=== PATIENT | female | born 1950 | race Caucasian/White ===

== ENCOUNTER 2024-10-13 09:39 | Emergency (ER) | payer OTHER ==
[~2024-10-13] VITALS: Ht 165.1 cm; Wt 100.0 kg
[2024-10-13 10:34] VITALS: BP 142/90; PULSE 74; RESP 16; TEMP 98.6; O2SAT 100
--- NOTE | 2024-10-13 10:47 | DVH ---
XY L HUMERUS XRAY, INDICATION: LEFT SHOULDER PAIN TECHNICAL DATA: Frontal and lateral views were obtained of the left humerus. COMPARISON: None FINDINGS: Displaced mid shaft left humerus fracture. Soft tissues are normal. IMPRESSION: Displaced mid shaft left humerus fracture.
[2024-10-13] MEDS: HYDROcodone-ACET 10/325MG TAB PO ONE (11:15)
[2024-10-13] MEDS ORDERED: IBUP1TAB5 PO (11:19)
--- NOTE | 2024-10-13 11:20 | ED.PDOC ---
Musculoskeletal HPI Comments This is a 73-year-old female who comes in with left shoulder pain. Apparently she tripped over a piece of wood slap this morning and landed directly on her shoulder. There was no loss of consciousness no other injury just pain in her arm and shoulder. Denies any numbness or tingling. 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 History Family History Family History: Unknown Social History Smoker: Non-Smoker Lives In: Home Musculoskeletal: reports: others (left shoulder pain) Physical Exam General Appearance: No Apparent Distress HEENT: Normal ENT Inspection, PERRL/EOMI, Pharynx Normal, TMs Normal Neck: Full Range of Motion, Non-Tender, Normal Inspection Respiratory: Lungs Clear, No Respiratory Distress, Normal Breath Sounds Cardiovascular: Regular Rate/Rhythm Breast Exam: Deferred Gastrointestinal: Non Tender, Normal Bowel Sounds Genitalia: Deferred Pelvic: Deferred Rectal: Deferred Extremities: Decreased range of motion, Normal capillary refill (Tenderness over the left shoulder with inability to move the arm also tenderness in the left humerus), Swelling, Tender Neurologic: Alert, Motor Weakness, Normal Affect, Normal Mood Cerebellar Function: Unable to Test Reflexes: NOT DONE Skin: Dry, Warm Lymphatic: No Adenopathy Was a procedure done? Was a procedure done?: No Differential Diagnosis EXT Differential Diagnosis: Sprain, Dislocation X-Ray, Labs, Meds, VS Vital Signs Date Time Temp Pulse Resp B/P (MAP) Pulse Ox O2 Delivery O2 Flow Rate FiO2 10/13/24 10:34 74 16 100 Room Air 10/13/24 10:34 98.6 74 16 142/90 (107) 100 98.6 10/13/24 09:53 98.6 74 16 142/90 (107) 100 X-Ray, Labs, Meds, VS Comment Patient seen and examined by me. X-ray was done in triage which does show a left humerus fracture. Patient will be given a [place] here for pain management and placed in the sling. Told the family she will need follow-up with her primary care for an orthopedic referral. Patient will be sent home with some strong Motrin.. Good cap refill noted prior and after sling placement. ORDERING PHYSICIAN: ELADIO PHIPPS MD PROCEDURE(s): LHUM - L HUMERUS XRAY REASON: LEFT SHOULDER PAIN ORDER NUMBER(s): [id number], ACCESSION NUMBER(s): [id number] XY L HUMERUS XRAY, INDICATION: LEFT SHOULDER PAIN TECHNICAL DATA: Frontal and lateral views were obtained of the left humerus. COMPARISON: None FINDINGS: Displaced mid shaft left humerus fracture. Soft tissues are normal. IMPRESSION: Displaced mid shaft left humerus fracture. ATED BY: JOO TOMAS MD DICTATED DATE/TIME: 10/13/24 1045 Time of 1ST Reevaluation: 11:18 Reevaluation 1ST: Improved Patient Education/Counseling: Diagnosis, Treatment, Prognosis, Need For Follow Up Family Education/Counseling: Treatment, Prognosis, Need For Follow Up Departure 1 Departure Time of Disposition: 11:18 Impression: Primary Impression: Left humeral fracture Disposition: 01 HOME / SELF CARE / HOMELESS Condition: Good Additional Instructions: Please keep take a copy of your x-ray with you when you see your primary care doctor and your orthopedic doctor Take the Motrin as needed for pain with food every 6 hours Keep your arm in the sling at all times e-Prescriptions Ibuprofen Micronized (Ibuprofen) 600 Mg Tab 600 MG PO Q6HPRN PRN for 5 Days, #20 TAB Prov: RYLEE FAJARDO 10/13/24 Discharged With: Self, Relative (Sibling) Critical Care Note Critical Care Time?: No Stability Stability form required: No RYLEE FAJARDO Oct 13, 2024 11:20
[2024-10-13] MEDS: IBUPROFEN 800 MG TAB PO ONE (11:46)
[2024-10-13] MEDS: ONDANSETRON ODT 4 MG TAB PO ONE (11:46)
== END 2024-10-13 11:20 | disposition home or self-care (01) ==
LOC: ER 09:39
DX: S42.392A Other fracture of shaft of left humerus, initial encounter for closed fracture (principal); I10 Essential (primary) hypertension; Z98.890 Other specified postprocedural states; Z88.0 Allergy status to penicillin; W01.0XXA Fall on same level from slipping, tripping and stumbling without subsequent striking against object, initial encounter; Y93.89 Activity, other specified; Y92.89 Other specified places as the place of occurrence of the external cause; Y99.8 Other external cause status
CPT/HCPCS: 73060; 99283; Q0162

== ENCOUNTER 2025-05-29 09:30 | Emergency (ER) | payer OTHER ==
[~2025-05-29] VITALS: Ht 165.1 cm; Wt 97.1 kg
[~2025-05-29 09:30] MED LIST: IBUP1TAB5 PO
--- NOTE | 2025-05-29 10:27 | ED.PDOC ---
Musculoskeletal HPI Comments THIS IS A 74 YEAR OLD MALE PRESENTING TO THE ED WITH CHIEF COMPLAINT OF LEFT LEG SWELLING. PATIENT REPORTS THAT SHE HAS BEEN EXPERIENCING LEFT LEG SWELLING AND PAIN FOR THE PAST 2 DAYS, WORSENING OVER TIME. PT IS ABLE TO WALK AND STAND WITH NORMAL ROM. PATIENT DENIES ANY FALL, INJURY, CHEST PAIN, SOB, NUMBNESS, WEAKNES S, OR TINGLING.NO OTHER SYMPTOMS REPORTED AT THIS TIME OF CARE. Time Seen by MD: 10:25 Primary Care Provider: DENIES Reviewed Notes: Nurses Notes, Medications, Allergies Allergies: Coded Allergies: Penicillins (Verified Allergy, Severe, 02/15/14) Home Meds Active Scripts Ibuprofen Micronized (Ibuprofen) 600 Mg Tab, 600 MG PO Q6HPRN PRN for 5 Days, #20 TAB Prov:RYLEE FAJARDO Leni BLACKWOOD 10/13/24 Information Source: Patient Mode of Arrival: Ambulatory Location: Left Extremity Location: Leg Timing: Days Prehospital treatment: None Severity: Mild Able to Move Extremity: Yes Bear Weight: Fully Pain: Mild Hand Dominance: Right Mechanism: Spontaneous Circumstances: Spontaneous Onset of Symptoms: Spontaneous Symptoms: Swelling, Pain DVT Risk Factors: NONE Associated signs and symptoms: Leg pain Past Medical History PAST MEDICAL HISTORY: HTN Surgical History: Hernia Repair 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 Family History Family History: Reviewed,noncontributory to illness Social History Smoker: Non-Smoker Alcohol: Denies ETOH Use Drugs: Denies Drug Use Lives In: Home Constitutional: denies: chills, diaphoresis, fatigue, fever, malaise, sweats, weakness, others EENTM: denies: blurred vision, double vision, ear bleeding, ear discharge, ear drainage, ear pain, ear ringing, eye pain, eye redness, hearing loss, mouth pain, mouth swelling, nasal discharge, nose bleeding, nose congestion, nose pain, photophobia, tearing, throat pain, throat swelling, voice changes, others Respiratory: denies: cough, hemoptysis, orthopnea, SOB at rest, shortness of breath, SOB with excertion, stridor, wheezing, others Cardiovascular: denies: chest pain, dizzy spells, diaphoresis, Dyspnea on exertion, edema, irregular heart beat, left arm pain, lightheadedness, palpitations, PND, syncope, others Gastrointestinal: denies: abdomen distended, abdominal pain, blood streaked bowels, constipated, diarrhea, dysphagia, difficulty swallowing, hematemesis, melena, nausea, poor appetite, poor fluid intake, rectal bleeding, rectal pain, vomiting, others Genitourinary: denies: abnormal vagina bleeding, burning, dyspareunia, dysuria, flank pain, frequency, hematuria, incontinence, pain, , vagina discharge, urgency, others Neurological: denies: dizziness, fainting, headache, left sided numbness, left sided weakness, numbness, paresthesia, pre-existing deficit, right sided numbness, right sided weakness, seizure, speech problems, tingling, tremors, weakness, others Musculoskeletal: reports: muscle pain, others (LEFT LEG SWELLING AND PAIN); denies: back pain, gout, joint pain, joint swelling, muscle stiffness, neck pain Integumetry: denies: bruises, change in color, change in hair/nails, dryness, laceration, lesions, lumps, rash, wounds, others Allergic/Immunocompromised: denies: Difficulty Healing, Frequent Infections, Hives, Itching, others Hematologic/Lymphatic: denies: anemia, blood clots, easy bleeding, easy bruising, swollen glands, others Endocrine: denies: excessive hunger, excessive sweating, excessive thirst, excessive urination, flushing, intolerance to cold, intolerance to heat, unexp lained weight gain, unexplained weight loss, others Psychiatric: denies: anxiety, bipolar disorder, depression, hopeless, panic disorder, schizophrenia, sleepless, suicidal, others All Other Systems: Reviewed and Negative Physical Exam General Appearance: No Apparent Distress, Obese HEENT: Normal ENT Inspection, PERRL/EOMI, Pharynx Normal, TMs Normal Neck: Full Range of Motion, Non-Tender, Normal, Normal Inspection Respiratory: Chest Non-Tender, Lungs Clear, No Accessory Muscle Use, No Respi ratory Distress, Normal Breath Sounds Cardiovascular: No Edema, No JVD, No Murmur, No Gallop, Normal Peripheral Pulses, Regular Rate/Rhythm Breast Exam: Deferred Gastrointestinal: No Organomegaly, Non Tender, No Pulsatile Mass, Normal Bowel Sounds, Soft Genitalia: Deferred Pelvic: Deferred Rectal: Deferred Extremities: No calf tenderness, Normal capillary refill, Normal range of motion, No pedal edema, Swelling (TENDERNESS AND MILD SWELLING ON LEFT LOWER LEG, NO REDNESS AND DVT SIGNS. ), Tender (MILD TENDERNESS AND SWELLING ON LEFT LOWER LEG, NO REDNESS AND OPEN WOUND. ) Musculoskeletal : Apperance: Normal Neurologic: Alert, formstone fitter II-XII nml as Tested, No Motor Deficits, Normal Affect, Normal Mood, No Sensory Deficits Cerebellar Function: Normal Reflexes: Normal Skin: Dry, Normal Color, Warm Peripheral Pulses: 2+ carotid (R), 2+ carotid (L), 2+ dorsalis pedis (R), 2+ dorsalis pedis (L) Lymphatic: No Adenopathy Was a procedure done? Was a procedure done?: No Differential Diagnosis EXT Differential Diagnosis: Cellulitis, Deep Vein Thrombosis, Strain X-Ray, Labs, Meds, VS Vital Signs Date Time Temp Pulse Resp B/P (MAP) Pulse Ox O2 Delivery O2 Flow Rate FiO2 05/29/25 10:30 98.2 71 17 150/76 (100) 95 98.2 X-Ray, Labs, Meds, VS Comment EXTERNAL MEDICAL RECORDS REVIEWED: [NONE] INDEPENDENT HISTORIANS: [NONE] SOCIAL DETERMINANTS OF HEALTH: [NONE] LABS ORDERED: NONE REVIEWED AND INTERPRETED RESULTS: LEFT DVT US IMAGING ORDERED: LEFT DVT US TREATMENTS ORDERED: NONE PROCEDURES PERFORMED: NONE CRITICAL CARE TIME: NONE I HAVE DISCUSSED THE PATIENT WITH THE ATTENDING PHYSICIAN DR. PHIPPS AND HE AGREES WITH THE PATIENT'S PLAN OF CARE AND DISPOSITION. BASED ON HISTORY OF PRESENT ILLNESS, AND PHYSICAL EXAM, PATIENT WILL BE DISCHARGED HOME. DISCUSSED PLAN FOR DISCHARGE HOME WITH RX []. MEDICATION WARNINGS GIVEN. SHARED DECISION MAKING: DISCUSSED WITH PATIENT THAT THEIR WORKUP WAS NORMAL. PATIENT INSTRUCTED TO FOLLOW UP WITH PRIMARY CARE PROVIDER IN 1-2 DAYS FOR RE- EVALUATION OF SYMPTOMS. PATIENT VERBALIZES UNDERSTANDING TO RETURN TO ED FOR NEW OR WORSENING SYMPTOMS OR IF FOLLOW UP WITH PCP CANNOT BE OBTAINED. PATIENT FEELS COMFORTABLE GOING HOME AT THIS TIME. ALL QUESTIONS ADDRESSED AT TIME OF DISCHARGE. Time of 1ST Reevaluation: 11:32 Reevaluation 1ST: Unchanged Patient Education/Counseling: Diagnosis, Treatment, Need For Follow Up Family Education/Counseling: Diagnosis, Treatment, Need For Follow Up Medical Screening: No EMC Exist At This Time Departure 1 Departure Time of Disposition: 11:32 Impression: Primary Impression: Pain and swelling of left lower leg Additional Impression: No deep vein thrombosis (DVT) Disposition: 01 HOME / SELF CARE / HOMELESS Condition: Stable Additional Instructions: FOLLOW-UP WITH PCP IN 1 TO 2 DAYS. TAKE MEDICATIONS PRESCRIBED. RETURN TO ED FOR ANY NEW OR WORSENING SYMPTOMS. Discharged With: Self Critical Care Note Critical Care Time?: No Stability Stability form required: No Heart Score Heart Score: Heart Score Response (Comments) Value History N/A 0 EKG N/A 0 Age N/A 0 Risk Factors N/A 0 Troponin N/A 0 Total 0 I personally scribed for TERRANCE CAMARENA ([email or web address]) on 05/29/25 at 10:27. Electronically submitted by Kirill Hernández ([email or web address]). TERRANCE CAMARENA May 29, 2025 10:27
--- NOTE | 2025-05-29 11:20 | DVH ---
Left lower extremity venous duplex Clinical History: LEFT LOWER LEG PAIN AND SWELLING Comparison: None Technique: Duplex Doppler evaluation of the deep venous system of the left lower extremity from the common femor al vein to the popliteal vein including color Doppler and spectral/pulsed waveform analysis was perfo rmed. Findings: The common femoral vein demonstrates appropriate compressibility and waveform variability. There is compressibility/patency of the great saphenous vein at the proximal thigh. The femoral vein demonstrates appropriate compressibility and waveform variability. The deep femoral vein demonstrates appropriate compressibility and waveform variability. The popliteal vein demonstrates appropriate compressibility and waveform variability. There is normal compressibility at the tibioperoneal trunk. Impression: No left femoropopliteal venous thrombosis.
[2025-05-29 12:04] VITALS: BP 165/77; PULSE 72; RESP 16; TEMP 98.2; O2SAT 95
== END 2025-05-29 12:06 | disposition home or self-care (01) ==
LOC: ER 09:30
DX: M79.662 Pain in left lower leg (principal); M79.89 Other specified soft tissue disorders; I10 Essential (primary) hypertension; Z88.0 Allergy status to penicillin; Z98.890 Other specified postprocedural states
CPT/HCPCS: 93971